=== PATIENT | male | born 1975 | race Caucasian/White ===

== ENCOUNTER 2019-02-12 10:36 | Inpatient (IN) | payer MEDICARE ==
[~2019-02-12] VITALS: Ht 170.2 cm; Wt 84.4 kg
[~2019-02-12 10:36] MED LIST: DIVA500T52 PO; DIVA500T69 PO; DULO30CA2 PO; QUET200T PO
[2019-02-12 13:28] VITALS: BP 129/83
[2019-02-12 13:45] VITALS: BP 120/82
[2019-02-12] MEDS ORDERED: ZOLPIDEM TARTRATE 10 MG TABLET PO PRN (13:45)
[2019-02-12] MEDS ORDERED: QUEtiapine FUMARATE 100 MG TABLET PO PRN (13:45)
[2019-02-12] MEDS ORDERED: DIVA-78 PO (13:53)
[2019-02-12] MEDS ORDERED: QUET200T PO (13:53)
[2019-02-12] MEDS ORDERED: DULO60CA44 PO (13:53)
[2019-02-12] MEDS: DULoxetine HCL 60 MG CAPSULE PO SCH (14:18)
[2019-02-12 16:21] VITALS: BP 124/69
[2019-02-12] MEDS: QUEtiapine FUMARATE 200 MG TABLET PO SCH (20:37)
[2019-02-12] MEDS: DIVALPROEX SODIUM 500 MG DR TABLET PO SCH (20:37)
[2019-02-13 08:11] VITALS: BP 113/63
[2019-02-13] MEDS: DULoxetine HCL 60 MG CAPSULE PO SCH (09:59)
[2019-02-13] MEDS: CLOTRIMAZOLE 1% 15 GM CREAM TP SCH ×2 (10:00→16:42)
[2019-02-13] MEDS: LORazepam 2 MG TABLET PO PRN (15:15)
[2019-02-13 17:12] VITALS: BP 116/78
[2019-02-13] MEDS: RANITIDINE HCL 150 MG TABLET PO SCH (18:52)
[2019-02-13] MEDS: DIVALPROEX SODIUM 500 MG DR TABLET PO SCH (20:11)
[2019-02-13] MEDS: QUEtiapine FUMARATE 200 MG TABLET PO SCH (20:11)
[2019-02-14 06:07] VITALS: BP 124/82
[2019-02-14 07:51] LABS: AMPHET/METH SCREEN,URINE NEGATIVE (NEGATIVE); BARBITURATE SCREEN, URINE NEGATIVE (NEGATIVE); BENZODIAZEPINES SCREEN,URINE NEGATIVE (NEGATIVE); CANNABINOID SCREEN,URINE NEGATIVE (NEGATIVE); COCAINE SCREEN,URINE NEGATIVE (NEGATIVE); METHADONE SCREEN, URINE NEGATIVE (NEGATIVE); OPIATE SCREEN,URINE NEGATIVE (NEGATIVE)
[2019-02-14 07:52] LABS: PHENCYCLIDINE SCREEN,URINE NEGATIVE (NEGATIVE)
[2019-02-14 08:06] VITALS: BP 118/73
[2019-02-14 08:12] LABS: APPEARANCE,URINE CLEAR (CLEAR); BILIRUBIN,URINE NEGATIVE (NEGATIVE); GLUCOSE, URINE (UA) NEGATIVE (NEGATIVE); KETONES,URINE NEGATIVE (NEGATIVE); LEUKOCYTE ESTERASE ,URINE NEGATIVE (NEGATIVE); NITRATE,URINE NEGATIVE (NEGATIVE); OCCULT BLOOD,URINE NEGATIVE (NEGATIVE); PH,URINE 7.5 (5.0-8.0); PROTEIN,URINE NEGATIVE (NEGATIVE); UROBILINOGEN,URINE 0.2 mg/dL (<=1.0)
[2019-02-14] MEDS: DULoxetine HCL 60 MG CAPSULE PO SCH (08:14)
[2019-02-14] MEDS: RANITIDINE HCL 150 MG TABLET PO SCH (08:14)
[2019-02-14] MEDS: CLOTRIMAZOLE 1% 15 GM CREAM TP SCH ×2 (08:15→16:35)
[2019-02-14] MEDS ORDERED: RANITIDINE HCL 150 MG TABLET PO SCH (09:00)
[2019-02-14 16:14] VITALS: BP 122/76
[2019-02-14] MEDS: DIVALPROEX SODIUM 500 MG DR TABLET PO SCH (20:33)
[2019-02-14] MEDS: QUEtiapine FUMARATE 200 MG TABLET PO SCH (20:33)
[2019-02-15 05:51] VITALS: BP 126/72
[2019-02-15 08:05] VITALS: BP 103/66
[2019-02-15] MEDS: RANITIDINE HCL 150 MG TABLET PO SCH (08:49)
[2019-02-15] MEDS: CLOTRIMAZOLE 1% 15 GM CREAM TP SCH ×2 (08:49→16:31)
[2019-02-15] MEDS: DULoxetine HCL 60 MG CAPSULE PO SCH (08:49)
[2019-02-15 16:17] VITALS: BP 112/64
[2019-02-15] MEDS: LORazepam 2 MG TABLET PO PRN (17:20)
[2019-02-15] MEDS: DIVALPROEX SODIUM 500 MG DR TABLET PO SCH (20:30)
[2019-02-15] MEDS: QUEtiapine FUMARATE 200 MG TABLET PO SCH (20:30)
[2019-02-16 05:54] VITALS: BP 116/68
[2019-02-16] MEDS: DULoxetine HCL 60 MG CAPSULE PO SCH (08:30)
[2019-02-16] MEDS: RANITIDINE HCL 150 MG TABLET PO SCH (08:30)
[2019-02-16] MEDS: CLOTRIMAZOLE 1% 15 GM CREAM TP SCH ×2 (08:30→17:05)
[2019-02-16 08:47] VITALS: BP 106/63
[2019-02-16 16:07] VITALS: BP 121/73
[2019-02-16] MEDS: DIVALPROEX SODIUM 500 MG DR TABLET PO SCH (20:03)
[2019-02-16] MEDS: QUEtiapine FUMARATE 200 MG TABLET PO SCH (20:03)
[2019-02-17 06:25] VITALS: BP 118/64
[2019-02-17 08:14] VITALS: BP 114/72
[2019-02-17] MEDS: RANITIDINE HCL 150 MG TABLET PO SCH (08:27)
[2019-02-17] MEDS: DULoxetine HCL 60 MG CAPSULE PO SCH (08:27)
[2019-02-17] MEDS: CLOTRIMAZOLE 1% 15 GM CREAM TP SCH ×2 (08:37→16:14)
[2019-02-17 16:04] VITALS: BP 124/83
[2019-02-17] MEDS: LORazepam 2 MG TABLET PO PRN (16:14)
[2019-02-17] MEDS: DIVALPROEX SODIUM 500 MG DR TABLET PO SCH (20:03)
[2019-02-17] MEDS: QUEtiapine FUMARATE 200 MG TABLET PO SCH (20:03)
[2019-02-18 05:50] VITALS: BP 115/62
[2019-02-18] MEDS: CLOTRIMAZOLE 1% 15 GM CREAM TP SCH ×2 (08:35→16:33)
[2019-02-18] MEDS: DULoxetine HCL 60 MG CAPSULE PO SCH (08:35)
[2019-02-18] MEDS: RANITIDINE HCL 150 MG TABLET PO SCH (08:36)
[2019-02-18 16:23] VITALS: BP 121/68
[2019-02-18] MEDS: QUEtiapine FUMARATE 200 MG TABLET PO SCH (20:46)
[2019-02-18] MEDS: DIVALPROEX SODIUM 500 MG DR TABLET PO SCH (20:47)
[2019-02-19 00:08] VITALS: BP 122/78
[2019-02-19 08:08] VITALS: BP 102/65
[2019-02-19] MEDS: DULoxetine HCL 60 MG CAPSULE PO SCH (08:33)
[2019-02-19] MEDS: RANITIDINE HCL 150 MG TABLET PO SCH (08:33)
[2019-02-19] MEDS: CLOTRIMAZOLE 1% 15 GM CREAM TP SCH ×2 (08:40→16:30)
[2019-02-19 16:05] VITALS: BP 125/83
[2019-02-19] MEDS: LORazepam 2 MG TABLET PO PRN (19:15)
[2019-02-19] MEDS: QUEtiapine FUMARATE 200 MG TABLET PO SCH (20:35)
[2019-02-19] MEDS: DIVALPROEX SODIUM 500 MG DR TABLET PO SCH (20:35)
[2019-02-20 05:40] VITALS: BP 110/67
[2019-02-20] MEDS: RANITIDINE HCL 150 MG TABLET PO SCH (08:36)
[2019-02-20] MEDS: DULoxetine HCL 60 MG CAPSULE PO SCH (08:36)
[2019-02-20] MEDS: CLOTRIMAZOLE 1% 15 GM CREAM TP SCH ×2 (08:36→16:29)
[2019-02-20 08:45] VITALS: BP 108/70
[2019-02-20 16:14] VITALS: BP 117/79
[2019-02-20] MEDS: DIVALPROEX SODIUM 500 MG DR TABLET PO SCH (20:30)
[2019-02-20] MEDS: QUEtiapine FUMARATE 300 MG TABLET PO SCH (20:30)
[2019-02-21 08:10] VITALS: BP 115/65
[2019-02-21] MEDS: CLOTRIMAZOLE 1% 15 GM CREAM TP SCH ×2 (08:12→16:32)
[2019-02-21] MEDS: RANITIDINE HCL 150 MG TABLET PO SCH (08:12)
[2019-02-21] MEDS: DULoxetine HCL 60 MG CAPSULE PO SCH (08:12)
[2019-02-21] MEDS: LORazepam 2 MG TABLET PO PRN (16:04)
[2019-02-21 17:43] VITALS: BP 122/75
[2019-02-21] MEDS: QUEtiapine FUMARATE 300 MG TABLET PO SCH (20:34)
[2019-02-21] MEDS: DIVALPROEX SODIUM 500 MG DR TABLET PO SCH (20:34)
[2019-02-22 06:13] VITALS: BP 118/68
[2019-02-22 08:26] VITALS: BP 107/66
[2019-02-22] MEDS: DULoxetine HCL 60 MG CAPSULE PO SCH (08:26)
[2019-02-22] MEDS: RANITIDINE HCL 150 MG TABLET PO SCH (08:26)
[2019-02-22] MEDS: CLOTRIMAZOLE 1% 15 GM CREAM TP SCH ×2 (08:27→16:21)
[2019-02-22] MEDS: LORazepam 2 MG TABLET PO PRN (15:56)
[2019-02-22 16:09] VITALS: BP 103/73
[2019-02-22] MEDS: QUEtiapine FUMARATE 300 MG TABLET PO SCH (20:09)
[2019-02-22] MEDS: DIVALPROEX SODIUM 500 MG DR TABLET PO SCH (20:09)
[2019-02-23 05:12] VITALS: BP 106/69
[2019-02-23 08:21] VITALS: BP 118/60
[2019-02-23] MEDS: RANITIDINE HCL 150 MG TABLET PO SCH (08:34)
[2019-02-23] MEDS: DULoxetine HCL 60 MG CAPSULE PO SCH (08:34)
[2019-02-23] MEDS: CLOTRIMAZOLE 1% 15 GM CREAM TP SCH ×2 (08:35→16:29)
[2019-02-23 16:06] VITALS: BP 121/75
[2019-02-23] MEDS: DIVALPROEX SODIUM 500 MG DR TABLET PO SCH (20:30)
[2019-02-23] MEDS: QUEtiapine FUMARATE 300 MG TABLET PO SCH (20:31)
[2019-02-24 06:29] VITALS: BP_SYST 118; BP_DIAS 70; BP_DIAS 76
[2019-02-24] MEDS: DULoxetine HCL 60 MG CAPSULE PO SCH (09:21)
[2019-02-24] MEDS: RANITIDINE HCL 150 MG TABLET PO SCH (09:21)
[2019-02-24] MEDS: CLOTRIMAZOLE 1% 15 GM CREAM TP SCH ×2 (09:22→16:34)
[2019-02-24 14:19] VITALS: BP 117/72
[2019-02-24] MEDS: LORazepam 2 MG TABLET PO PRN (14:20)
[2019-02-24 16:11] VITALS: BP 116/74
[2019-02-24] MEDS: DIVALPROEX SODIUM 500 MG DR TABLET PO SCH (20:30)
[2019-02-24] MEDS: QUEtiapine FUMARATE 300 MG TABLET PO SCH (20:30)
[2019-02-25 03:15] VITALS: BP 120/78
[2019-02-25 08:21] VITALS: BP 109/64
[2019-02-25] MEDS: DULoxetine HCL 60 MG CAPSULE PO SCH (08:28)
[2019-02-25] MEDS: RANITIDINE HCL 150 MG TABLET PO SCH (08:28)
[2019-02-25] MEDS: CLOTRIMAZOLE 1% 15 GM CREAM TP SCH ×2 (08:40→16:31)
[2019-02-25 16:17] VITALS: BP 124/81
[2019-02-25] MEDS ORDERED: RANI150C4 PO (17:58)
[2019-02-25] MEDS: QUEtiapine FUMARATE 300 MG TABLET PO SCH (20:32)
[2019-02-25] MEDS: DIVALPROEX SODIUM 500 MG DR TABLET PO SCH (20:32)
[2019-02-26 05:52] VITALS: BP 130/83
== END 2019-02-26 07:15 | disposition home or self-care (01) | DRG 885 ==
LOC: B2X 13:26
DX: F25.1 Schizoaffective disorder, depressive type (principal); R45.851 Suicidal ideations; K21.9 Gastro-esophageal reflux disease without esophagitis; B35.3 Tinea pedis; F15.90 Other stimulant use, unspecified, uncomplicated; Z59.0 Homelessness; Z91.5 Personal history of self-harm; Z79.899 Other long term (current) drug therapy; Z83.3 Family history of diabetes mellitus; Z91.19 Patient's noncompliance with other medical treatment and regimen
CPT/HCPCS: 80307; 87081

== ENCOUNTER 2019-03-06 23:06 | Emergency (ER) | payer MEDICARE, OTHER ==
[~2019-03-06 23:06] MED LIST changes: +DIVA-78 PO; -DIVA500T52 PO; -DIVA500T69 PO; -DULO30CA2 PO; +DULO60CA44 PO; +RANI150C4 PO
== END 2019-03-06 23:15 | disposition left against medical advice (07) ==
LOC: EMS 23:06
DX: Z53.21 Procedure and treatment not carried out due to patient leaving prior to being seen by health care provider (principal)

== ENCOUNTER 2019-03-07 01:41 | Inpatient (IN) | payer MEDICARE, MEDICAID ==
[~2019-03-07] VITALS: Ht 177.8 cm; Wt 80.0 kg
[2019-03-07 03:11] LABS: ANION GAP 9 mmol/L (8-16); CALCIUM, TOTAL 9.6 mg/dL (8.8-10.5); CARBON DIOXIDE 27 mmol/L (22-29); CHLORIDE 103 mmol/L (98-107); CREATININE 0.83 mg/dL (0.60-1.30); GLOMERULAR FILTR. RATE CALC > 60 mL/min (>60); GLUCOSE,RANDOM 92 mg/dL (70-110); POTASSIUM 3.8 mmol/L (3.5-5.1); SODIUM SERUM 139 mmol/L (136-145); UREA NITROGEN, BLOOD 24 mg/dL (7-18)
[2019-03-07 03:15] LABS: BASOPHILS % (AUTO) 0.4 % (0.0-2.0); EOSINOPHILS % (AUTO) 2.7 % (1.0-6.0); HEMOGLOBIN 13.5 g/dL (13.5-17.5); LYMPHOCYTES # (AUTO) 2.1 K/uL (1.0-4.8); LYMPHOCYTES % (AUTO) 23.5 % (22.0-44.0); MEAN CORPUSCULAR HEMOGLOBIN 31.4 pg (26.0-34.0); MEAN CORPUSCULAR VOLUME 95 fL (80-100); MONOCYTES # (AUTO) 1.5 K/uL (0.1-1.0); MONOCYTES % (AUTO) 16.5 % (2.0-9.0); NEUTROPHILS % (AUTO) 56.9 % (40.0-70.0); PLATELET COUNT (AUTO) 241 K/uL (150-450)
[2019-03-07 03:17] LABS: ALANINE AMINOTRANSFERASE 26 U/L (12-78); ALBUMIN 4.8 g/dL (3.4-5.0); ALKALINE PHOSPHATASE 86 U/L (46-116); ASPARTATE AMINOTRANSFERASE 33 U/L (15-37); TOTAL PROTEIN, SERUM 8.1 g/dL (6.4-8.2)
[2019-03-07 03:22] LABS: AMPHET/METH SCREEN,URINE NEGATIVE (NEGATIVE); BARBITURATE SCREEN, URINE NEGATIVE (NEGATIVE); BENZODIAZEPINES SCREEN,URINE NEGATIVE (NEGATIVE); CANNABINOID SCREEN,URINE NEGATIVE (NEGATIVE); COCAINE SCREEN,URINE NEGATIVE (NEGATIVE); METHADONE SCREEN, URINE NEGATIVE (NEGATIVE); OPIATE SCREEN,URINE NEGATIVE (NEGATIVE)
[2019-03-07 03:24] LABS: PHENCYCLIDINE SCREEN,URINE NEGATIVE (NEGATIVE)
[2019-03-07] MEDS ORDERED: QUEtiapine FUMARATE 100 MG TABLET PO ONE (03:30)
[2019-03-07 03:32] LABS: VALPROIC ACID 5 mcg/mL (50-100)
[2019-03-07] MEDS ORDERED: HALOPERIDOL 5 MG TABLET PO PRN (06:00)
[2019-03-07] MEDS ORDERED: ZOLPIDEM TARTRATE 10 MG TABLET PO PRN (06:00)
[2019-03-07 09:45] VITALS: BP 142/77
[2019-03-07] MEDS ORDERED: PNEUMOCOCCAL VACCINE POLYVALENT 0.5 ML VIAL [PPSV23] IM ONE (11:15)
[2019-03-07] MEDS: DULoxetine HCL 60 MG CAPSULE PO SCH (15:08)
[2019-03-07 17:44] VITALS: BP 105/65
[2019-03-07] MEDS: DIVALPROEX SODIUM 500 MG DR TABLET PO SCH (20:38)
[2019-03-07] MEDS: QUEtiapine FUMARATE 200 MG TABLET PO SCH (20:39)
[2019-03-08] MEDS: DULoxetine HCL 60 MG CAPSULE PO SCH (08:51)
[2019-03-08] MEDS ORDERED: HALOPERIDOL LACTATE 5 MG/ML VIAL IM ONE (17:45)
[2019-03-08] MEDS ORDERED: LORazepam 2 MG/ML VIAL IM ONE (17:45)
[2019-03-08] MEDS ORDERED: DiphenhydrAMINE HCL 50 MG/ML VIAL IM ONE (17:45)
[2019-03-08] MEDS: DIVALPROEX SODIUM 500 MG DR TABLET PO SCH (21:00)
[2019-03-08] MEDS: QUEtiapine FUMARATE 200 MG TABLET PO SCH (21:00)
[2019-03-09] MEDS: DULoxetine HCL 60 MG CAPSULE PO SCH (09:00)
[2019-03-09] MEDS: QUEtiapine FUMARATE 200 MG TABLET PO SCH (20:17)
[2019-03-09] MEDS: DIVALPROEX SODIUM 500 MG DR TABLET PO SCH (20:17)
[2019-03-10] MEDS: DULoxetine HCL 60 MG CAPSULE PO SCH (10:00)
[2019-03-10] MEDS: LORazepam 2 MG TABLET PO PRN (17:20)
[2019-03-10] MEDS: DIVALPROEX SODIUM 500 MG DR TABLET PO SCH (20:37)
[2019-03-10] MEDS: QUEtiapine FUMARATE 200 MG TABLET PO SCH (20:37)
[2019-03-11 08:56] VITALS: BP 124/72
[2019-03-11] MEDS: DULoxetine HCL 60 MG CAPSULE PO SCH (09:00)
[2019-03-11] MEDS: LORazepam 2 MG TABLET PO PRN (16:04)
[2019-03-11 17:03] VITALS: BP 110/71
[2019-03-11] MEDS: QUEtiapine FUMARATE 200 MG TABLET PO SCH (20:40)
[2019-03-11] MEDS: DIVALPROEX SODIUM 500 MG DR TABLET PO SCH (20:41)
[2019-03-12] MEDS: RANITIDINE HCL 150 MG TABLET PO SCH (09:00)
[2019-03-12] MEDS: DULoxetine HCL 60 MG CAPSULE PO SCH (09:49)
[2019-03-12] MEDS: DIVALPROEX SODIUM 500 MG DR TABLET PO SCH (20:21)
[2019-03-12] MEDS: QUEtiapine FUMARATE 200 MG TABLET PO SCH (20:25)
[2019-03-13] MEDS: DULoxetine HCL 60 MG CAPSULE PO SCH (07:54)
[2019-03-13] MEDS: RANITIDINE HCL 150 MG TABLET PO SCH (07:56)
[2019-03-13 08:00] VITALS: BP 128/90
[2019-03-13] MEDS ORDERED: BISACODYL 5 MG EC TABLET PO PRN (12:30)
[2019-03-13] MEDS: LORazepam 2 MG TABLET PO PRN (15:57)
[2019-03-13 17:02] VITALS: BP 116/66
[2019-03-13] MEDS: DIVALPROEX SODIUM 500 MG DR TABLET PO SCH (20:15)
[2019-03-13] MEDS: QUEtiapine FUMARATE 200 MG TABLET PO SCH (20:15)
[2019-03-14] MEDS: DULoxetine HCL 60 MG CAPSULE PO SCH (08:07)
[2019-03-14] MEDS: RANITIDINE HCL 150 MG TABLET PO SCH (08:07)
[2019-03-14 08:10] VITALS: BP 134/85
[2019-03-14] MEDS ORDERED: QUET200T29 PO (14:23)
[2019-03-14] MEDS ORDERED: DULO60CA44 PO (14:23)
[2019-03-14] MEDS ORDERED: DIVA-78 PO (14:23)
== END 2019-03-14 16:20 | disposition home or self-care (01) | DRG 885 ==
LOC: EMS 01:45 → 3EX 06:00
DX: F25.1 Schizoaffective disorder, depressive type (principal); F15.129 Other stimulant abuse with intoxication, unspecified; R45.851 Suicidal ideations; F41.9 Anxiety disorder, unspecified; R56.9 Unspecified convulsions; K21.9 Gastro-esophageal reflux disease without esophagitis; K59.00 Constipation, unspecified; R79.89 Other specified abnormal findings of blood chemistry; Z59.0 Homelessness; Z91.14 Patient's other noncompliance with medication regimen; Z91.5 Personal history of self-harm; Z79.899 Other long term (current) drug therapy
CPT/HCPCS: 87081; G0378; G0480; J1200; J1630; J2060

== ENCOUNTER 2020-03-21 08:53 | Inpatient (IN) | payer MEDICARE, MEDICAID ==
[~2020-03-21] VITALS: Ht 167.6 cm; Wt 73.5 kg
[~2020-03-21 08:53] MED LIST changes: +DIVA-112 PO; -DIVA-78 PO; +DULO-8 PO; -DULO60CA44 PO; -QUET200T PO; +QUET200T29 PO
[2020-03-21] MEDS ORDERED: LORazepam 2 MG TABLET PO PRN (10:45)
[2020-03-21] MEDS ORDERED: ZOLPIDEM TARTRATE 10 MG TABLET PO PRN (10:45)
[2020-03-21] MEDS ORDERED: HALOPERIDOL 5 MG TABLET PO PRN (10:45)
[2020-03-21 11:47] VITALS: BP 117/65
[2020-03-21 17:36] VITALS: BP 107/64
[2020-03-21] MEDS: QUEtiapine FUMARATE 200 MG TABLET PO SCH (20:38)
[2020-03-21] MEDS: DIVALPROEX SODIUM 500 MG DR TABLET PO SCH (20:38)
[2020-03-22] MEDS ORDERED: PETROLATUM,WHITE 28 GM JELLY TP PRN (07:00)
[2020-03-22] MEDS ORDERED: IBUPROFEN 600 MG TABLET PO PRN (07:00)
[2020-03-22] MEDS ORDERED: MAGNESIUM HYDROXIDE SUSPENSION 30 ML UDCUP PO PRN (07:00)
[2020-03-22] MEDS ORDERED: BENZOCAINE/MENTHOL LOZENGE PO PRN (07:00)
[2020-03-22] MEDS ORDERED: LOPERAMIDE HCL 2 MG CAPSULE PO PRN (07:00)
[2020-03-22] MEDS ORDERED: DOCUSATE SODIUM 100 MG CAPSULE PO PRN (07:00)
[2020-03-22] MEDS ORDERED: ONDANSETRON HCL 4 MG TABLET PO PRN (07:00)
[2020-03-22] MEDS ORDERED: OMEPRAZOLE 20 MG CAPSULE PO PRN (07:00)
[2020-03-22] MEDS ORDERED: ACETAMINOPHEN 325 MG TABLET PO PRN (07:00)
[2020-03-22] MEDS ORDERED: ALBUTEROL SULFATE HFA 90 MCG/PUFF 8 GM INHALER IH PRN (07:00)
[2020-03-22] MEDS ORDERED: BACITRACIN 28 GM OINTMENT TP PRN (07:00)
[2020-03-22] MEDS ORDERED: CloNIDine HCL 0.1 MG TABLET PO PRN (07:00)
[2020-03-22 08:20] VITALS: BP 111/61
[2020-03-22] MEDS: DULoxetine HCL 60 MG CAPSULE PO SCH (08:28)
[2020-03-22 16:00] VITALS: BP 110/69
[2020-03-22] MEDS: DIVALPROEX SODIUM 500 MG DR TABLET PO SCH (20:35)
[2020-03-22] MEDS: QUEtiapine FUMARATE 200 MG TABLET PO SCH (20:35)
[2020-03-23 09:19] VITALS: BP 110/72
[2020-03-23] MEDS: DULoxetine HCL 60 MG CAPSULE PO SCH (09:30)
[2020-03-23 16:18] VITALS: BP 115/67
[2020-03-23] MEDS: QUEtiapine FUMARATE 200 MG TABLET PO SCH (20:33)
[2020-03-23] MEDS: DIVALPROEX SODIUM 500 MG DR TABLET PO SCH (20:33)
[2020-03-24 04:41] VITALS: BP 118/68
[2020-03-24] MEDS: DULoxetine HCL 60 MG CAPSULE PO SCH (08:35)
[2020-03-24 10:03] VITALS: BP 100/60
[2020-03-24 16:11] VITALS: BP 107/64
[2020-03-24] MEDS: QUEtiapine FUMARATE 200 MG TABLET PO SCH (20:37)
[2020-03-24] MEDS: DIVALPROEX SODIUM 500 MG DR TABLET PO SCH (20:37)
[2020-03-25 00:55] VITALS: BP 119/64
[2020-03-25 07:49] LABS: BASOPHILS % (AUTO) 0.8 % (0.0-2.0); EOSINOPHILS % (AUTO) 4.8 % (1.0-6.0); HEMATOCRIT 41.5 % (41-53); HEMOGLOBIN 13.6 g/dL (13.5-17.5); LYMPHOCYTES # (AUTO) 1.5 K/uL (1.0-4.8); LYMPHOCYTES % (AUTO) 36.4 % (22.0-44.0); MEAN CORPUSCULAR HEMOGLOBIN 30.8 pg (26.0-34.0); MEAN CORPUSCULAR HGB CONC 32.8 G/dL (31.0-37.0); MEAN CORPUSCULAR VOLUME 94 fL (80-100); MONOCYTES # (AUTO) 0.4 K/uL (0.1-1.0); MONOCYTES % (AUTO) 8.6 % (2.0-9.0); NEUTROPHILS # (AUTO) 2.1 K/uL (1.8-7.7); NEUTROPHILS % (AUTO) 49.4 % (40.0-70.0); PLATELET COUNT (AUTO) 242 K/uL (150-450); RED BLOOD CELL COUNT(AUTO) 4.41 MIL/uL (4.50-5.90); RED CELL DISTRIBUTION WIDTH 13.8 % (11.5-14.5)
[2020-03-25 08:11] LABS: ALANINE AMINOTRANSFERASE 18 U/L (12-78); ALBUMIN 3.6 g/dL (3.4-5.0); ALKALINE PHOSPHATASE 62 U/L (46-116); ANION GAP 5 mmol/L (8-16); ASPARTATE AMINOTRANSFERASE 5 U/L (15-37); BILIRUBIN,TOTAL 0.3 mg/dL (0.1-1.0); CARBON DIOXIDE 31 mmol/L (22-29); CHLORIDE 104 mmol/L (98-107); CHOLESTEROL 101 mg/dL (131-200); CREATININE 0.89 mg/dL (0.60-1.30); GLOMERULAR FILTR. RATE CALC > 60 mL/min (>60); GLUCOSE,RANDOM 79 mg/dL (70-110); HDL CHOLESTEROL 34 mg/dL (40-60); LDL CHOL (CALC.) 55 mg/dL (0-130); POTASSIUM 3.9 mmol/L (3.5-5.1); SODIUM SERUM 140 mmol/L (136-145); THYROID STIMULATING HORMONE 0.38 uIU/mL (0.36-3.74); TOTAL PROTEIN, SERUM 6.8 g/dL (6.4-8.2); TRIGLYCERIDES 62 mg/dL (15-150); UREA NITROGEN, BLOOD 20 mg/dL (7-18); VALPROIC ACID 68 mcg/mL (50-100)
[2020-03-25 08:12] VITALS: BP 109/66
[2020-03-25] MEDS: DULoxetine HCL 60 MG CAPSULE PO SCH (08:23)
[2020-03-25 16:13] VITALS: BP 100/68
[2020-03-25] MEDS: DIVALPROEX SODIUM 500 MG DR TABLET PO SCH (20:08)
[2020-03-25] MEDS: QUEtiapine FUMARATE 200 MG TABLET PO SCH (20:10)
[2020-03-26 04:53] VITALS: BP 118/7
[2020-03-26] MEDS: DULoxetine HCL 60 MG CAPSULE PO SCH (08:06)
[2020-03-26] MEDS: NYSTATIN 30 GM CREAM TP SCH ×2 (08:08→16:31)
[2020-03-26 08:25] VITALS: BP 105/62
[2020-03-26 16:24] VITALS: BP 107/69
[2020-03-26] MEDS: QUEtiapine FUMARATE 200 MG TABLET PO SCH (20:46)
[2020-03-26] MEDS: DIVALPROEX SODIUM 500 MG DR TABLET PO SCH (20:46)
[2020-03-27] MEDS: DULoxetine HCL 60 MG CAPSULE PO SCH (08:31)
[2020-03-27 08:45] VITALS: BP 105/70
[2020-03-27] MEDS: NYSTATIN 30 GM CREAM TP SCH ×2 (09:07→16:28)
[2020-03-27 16:20] VITALS: BP 110/60
[2020-03-27] MEDS: QUEtiapine FUMARATE 200 MG TABLET PO SCH (20:37)
[2020-03-27] MEDS: DIVALPROEX SODIUM 500 MG DR TABLET PO SCH (20:38)
[2020-03-28 08:26] VITALS: BP 101/51
[2020-03-28] MEDS: DULoxetine HCL 60 MG CAPSULE PO SCH (08:33)
[2020-03-28] MEDS: NYSTATIN 30 GM CREAM TP SCH ×2 (08:33→17:00)
[2020-03-28 16:27] VITALS: BP 107/61
[2020-03-28] MEDS: QUEtiapine FUMARATE 200 MG TABLET PO SCH (20:23)
[2020-03-28] MEDS: DIVALPROEX SODIUM 500 MG DR TABLET PO SCH (20:23)
[2020-03-29 04:33] VITALS: BP 105/64
[2020-03-29 08:20] VITALS: BP 102/61
[2020-03-29] MEDS: DULoxetine HCL 60 MG CAPSULE PO SCH (09:06)
[2020-03-29] MEDS: NYSTATIN 30 GM CREAM TP SCH ×2 (09:06→16:31)
[2020-03-29 16:21] VITALS: BP 114/67
[2020-03-29] MEDS: QUEtiapine FUMARATE 200 MG TABLET PO SCH (20:07)
[2020-03-29] MEDS: DIVALPROEX SODIUM 500 MG DR TABLET PO SCH (20:07)
[2020-03-30 01:57] VITALS: BP 126/84
[2020-03-30 08:27] VITALS: BP 111/69
[2020-03-30] MEDS: NYSTATIN 30 GM CREAM TP SCH ×2 (08:39→16:35)
[2020-03-30] MEDS: DULoxetine HCL 60 MG CAPSULE PO SCH (08:39)
[2020-03-30 16:23] VITALS: BP 109/62
[2020-03-30] MEDS: MAG HYDROX/AL HYDROX/SIMETH ES 30 ML SUSPENSION UDCUP PO PRN (20:10)
[2020-03-30] MEDS: DIVALPROEX SODIUM 500 MG DR TABLET PO SCH (20:43)
[2020-03-30] MEDS: QUEtiapine FUMARATE 200 MG TABLET PO SCH (20:43)
[2020-03-31 01:20] VITALS: BP 110/69
[2020-03-31 08:14] VITALS: BP 110/65
[2020-03-31] MEDS: DULoxetine HCL 60 MG CAPSULE PO SCH (08:38)
[2020-03-31] MEDS: NYSTATIN 30 GM CREAM TP SCH ×2 (08:39→16:33)
[2020-03-31 16:46] VITALS: BP 107/62
[2020-03-31] MEDS: MAG HYDROX/AL HYDROX/SIMETH ES 30 ML SUSPENSION UDCUP PO PRN (19:35)
[2020-03-31] MEDS: QUEtiapine FUMARATE 200 MG TABLET PO SCH (20:33)
[2020-03-31] MEDS: DIVALPROEX SODIUM 500 MG DR TABLET PO SCH (20:34)
[2020-04-01 00:14] VITALS: BP 98/64
[2020-04-01] MEDS: DULoxetine HCL 60 MG CAPSULE PO SCH (08:15)
[2020-04-01] MEDS: NYSTATIN 30 GM CREAM TP SCH ×2 (08:40→16:52)
[2020-04-01 10:49] VITALS: BP 104/68
[2020-04-01 16:18] VITALS: BP 111/65
[2020-04-01] MEDS: DIVALPROEX SODIUM 500 MG DR TABLET PO SCH (20:41)
[2020-04-01] MEDS: QUEtiapine FUMARATE 200 MG TABLET PO SCH (20:41)
[2020-04-02 03:54] VITALS: BP 118/79
[2020-04-02 08:13] VITALS: BP 110/66
[2020-04-02] MEDS: DULoxetine HCL 60 MG CAPSULE PO SCH (08:25)
[2020-04-02] MEDS: NYSTATIN 30 GM CREAM TP SCH ×2 (09:30→16:54)
[2020-04-02 16:19] VITALS: BP 121/75
[2020-04-02] MEDS: DIVALPROEX SODIUM 500 MG DR TABLET PO SCH (20:38)
[2020-04-02] MEDS: QUEtiapine FUMARATE 200 MG TABLET PO SCH (20:38)
[2020-04-03 02:48] VITALS: BP 104/61
[2020-04-03] MEDS: DULoxetine HCL 60 MG CAPSULE PO SCH (08:37)
[2020-04-03] MEDS: NYSTATIN 30 GM CREAM TP SCH ×2 (08:38→16:55)
[2020-04-03 09:20] VITALS: BP 104/61
[2020-04-03 16:21] VITALS: BP 132/81
[2020-04-03] MEDS: DIVALPROEX SODIUM 500 MG DR TABLET PO SCH (20:27)
[2020-04-03] MEDS: QUEtiapine FUMARATE 200 MG TABLET PO SCH (20:27)
[2020-04-04 00:48] VITALS: BP 104/62
[2020-04-04] MEDS ORDERED: NYST30CR9 TP (07:25)
[2020-04-04] MEDS: DULoxetine HCL 60 MG CAPSULE PO SCH (08:11)
[2020-04-04] MEDS: NYSTATIN 30 GM CREAM TP SCH (08:17)
[2020-04-04 09:03] VITALS: BP 100/60
== END 2020-04-04 13:10 | disposition home or self-care (01) | DRG 885 ==
LOC: B2X 10:30
PROVIDERS: ADMIT Psychiatry & Neurology Psychiatry; ATTEND Psychiatry & Neurology Psychiatry
DX: F25.1 Schizoaffective disorder, depressive type (principal); F19.10 Other psychoactive substance abuse, uncomplicated; F41.9 Anxiety disorder, unspecified; F32.9 Major depressive disorder, single episode, unspecified; F17.200 Nicotine dependence, unspecified, uncomplicated; Z59.0 Homelessness; F25.9 Schizoaffective disorder, unspecified; G47.00 Insomnia, unspecified; K59.00 Constipation, unspecified; G40.909 Epilepsy, unspecified, not intractable, without status epilepticus; Z20.828 Contact with and (suspected) exposure to other viral communicable diseases
CPT/HCPCS: 84436; 84439; 84443; 87426

== ENCOUNTER 2020-05-18 17:09 | Emergency (ER) | payer MEDICARE, MEDICAID ==
[~2020-05-18] VITALS: Ht 170.2 cm; Wt 70.5 kg
[~2020-05-18 17:09] MED LIST changes: +NYST30CR9 TP; -RANI150C4 PO
[2020-05-18 17:13] VITALS: BP 123/79
== END 2020-05-18 18:47 | disposition left against medical advice (07) ==
LOC: EMS 17:09
DX: R45.851 Suicidal ideations (principal); Z53.21 Procedure and treatment not carried out due to patient leaving prior to being seen by health care provider

== ENCOUNTER 2020-05-18 19:49 | Emergency (ER) | payer MEDICARE, MEDICAID ==
[~2020-05-18] VITALS: Ht 170.2 cm; Wt 72.7 kg
[2020-05-18 21:22] LABS: BASOPHILS % (AUTO) 0.7 % (0.0-2.0); EOSINOPHILS % (AUTO) 5.9 % (1.0-6.0); HEMATOCRIT 39.6 % (41-53); HEMOGLOBIN 13.3 g/dL (13.5-17.5); LYMPHOCYTES # (AUTO) 1.7 K/uL (1.0-4.8); LYMPHOCYTES % (AUTO) 27.2 % (22.0-44.0); MEAN CORPUSCULAR HEMOGLOBIN 31.6 pg (26.0-34.0); MEAN CORPUSCULAR HGB CONC 33.5 G/dL (31.0-37.0); MEAN CORPUSCULAR VOLUME 94 fL (80-100); MONOCYTES # (AUTO) 0.8 K/uL (0.1-1.0); MONOCYTES % (AUTO) 13.3 % (2.0-9.0); NEUTROPHILS # (AUTO) 3.2 K/uL (1.8-7.7); NEUTROPHILS % (AUTO) 52.9 % (40.0-70.0); PLATELET COUNT (AUTO) 292 K/uL (150-450); RED CELL DISTRIBUTION WIDTH 14.1 % (11.5-14.5)
[2020-05-18 21:26] LABS: ANION GAP 4 mmol/L (8-16); CALCIUM, TOTAL 9.9 mg/dL (8.8-10.5); CARBON DIOXIDE 33 mmol/L (22-29); CHLORIDE 103 mmol/L (98-107); CREATININE 0.86 mg/dL (0.60-1.30); GLOMERULAR FILTR. RATE CALC > 60 mL/min (>60); GLUCOSE,RANDOM 77 mg/dL (70-110); POTASSIUM 4.2 mmol/L (3.5-5.1); SODIUM SERUM 140 mmol/L (136-145); UREA NITROGEN, BLOOD 16 mg/dL (7-18)
[2020-05-18 21:32] LABS: ALANINE AMINOTRANSFERASE 31 U/L (12-78); ALKALINE PHOSPHATASE 103 U/L (46-116); ASPARTATE AMINOTRANSFERASE 18 U/L (15-37); BILIRUBIN,TOTAL 0.2 mg/dL (0.1-1.0); TOTAL PROTEIN, SERUM 7.4 g/dL (6.4-8.2)
[2020-05-18 21:34] LABS: VALPROIC ACID < 3 mcg/mL (50-100)
[2020-05-18 22:05] LABS: AMPHET/METH SCREEN,URINE POSITIVE (NEGATIVE); BARBITURATE SCREEN, URINE NEGATIVE (NEGATIVE); BENZODIAZEPINES SCREEN,URINE NEGATIVE (NEGATIVE); CANNABINOID SCREEN,URINE NEGATIVE (NEGATIVE); COCAINE SCREEN,URINE NEGATIVE (NEGATIVE); METHADONE SCREEN, URINE NEGATIVE (NEGATIVE); OPIATE SCREEN,URINE NEGATIVE (NEGATIVE)
[2020-05-18 22:06] LABS: PHENCYCLIDINE SCREEN,URINE NEGATIVE (NEGATIVE)
[2020-05-19 00:20] VITALS: BP 133/81
[2020-05-19 00:20] LABS: COVID AG,FIA SOURCE NASOPHARYNGEAL
== END 2020-05-19 01:21 | disposition left against medical advice (07) ==
LOC: EMS 19:52
DX: F25.9 Schizoaffective disorder, unspecified (principal)
CPT/HCPCS: 36415; 80053; 80164; 80307; 85025; 87426; 99284; G0480

== ENCOUNTER 2020-06-12 01:17 | Emergency (ER) | payer MEDICARE, MEDICAID ==
[~2020-06-12] VITALS: Ht 170.2 cm; Wt 72.7 kg
[2020-06-12] MEDS ORDERED: DIVA-80 PO (01:34)
[2020-06-12] MEDS ORDERED: QUET200T PO (01:34)
[2020-06-12 02:17] LABS: BASOPHILS % (AUTO) 0.8 % (0.0-2.0); HEMATOCRIT 40.3 % (41-53); HEMOGLOBIN 13.6 g/dL (13.5-17.5); LYMPHOCYTES # (AUTO) 1.6 K/uL (1.0-4.8); LYMPHOCYTES % (AUTO) 26.9 % (22.0-44.0); MEAN CORPUSCULAR HEMOGLOBIN 31.9 pg (26.0-34.0); MEAN CORPUSCULAR HGB CONC 33.7 G/dL (31.0-37.0); MEAN CORPUSCULAR VOLUME 95 fL (80-100); MONOCYTES # (AUTO) 0.7 K/uL (0.1-1.0); MONOCYTES % (AUTO) 11.3 % (2.0-9.0); NEUTROPHILS # (AUTO) 3.4 K/uL (1.8-7.7); PLATELET COUNT (AUTO) 289 K/uL (150-450); RED BLOOD CELL COUNT(AUTO) 4.26 MIL/uL (4.50-5.90); RED CELL DISTRIBUTION WIDTH 14.1 % (11.5-14.5)
[2020-06-12 02:24] LABS: ANION GAP 7 mmol/L (8-16); CALCIUM, TOTAL 9.2 mg/dL (8.8-10.5); CARBON DIOXIDE 28 mmol/L (22-29); CHLORIDE 103 mmol/L (98-107); GLOMERULAR FILTR. RATE CALC > 60 mL/min (>60); GLUCOSE,RANDOM 106 mg/dL (70-110); POTASSIUM 3.9 mmol/L (3.5-5.1); SODIUM SERUM 138 mmol/L (136-145); UREA NITROGEN, BLOOD 16 mg/dL (7-18)
[2020-06-12 02:30] LABS: ALANINE AMINOTRANSFERASE 28 U/L (12-78); ALBUMIN 4.2 g/dL (3.4-5.0); ALKALINE PHOSPHATASE 85 U/L (46-116); ASPARTATE AMINOTRANSFERASE 28 U/L (15-37); BILIRUBIN,TOTAL 0.8 mg/dL (0.1-1.0); TOTAL PROTEIN, SERUM 7.8 g/dL (6.4-8.2)
[2020-06-12] MEDS ORDERED: QUEtiapine FUMARATE 200 MG TABLET PO ONE (02:30)
[2020-06-12 04:15] VITALS: BP 109/70
== END 2020-06-12 04:15 | disposition home or self-care (01) ==
LOC: EMS 01:19
DX: F20.9 Schizophrenia, unspecified (principal); F41.9 Anxiety disorder, unspecified; F31.9 Bipolar disorder, unspecified; F17.210 Nicotine dependence, cigarettes, uncomplicated; F12.90 Cannabis use, unspecified, uncomplicated; Z76.0 Encounter for issue of repeat prescription; Z59.0 Homelessness
CPT/HCPCS: 36415; 80053; 85025; 99283; G0480

== ENCOUNTER 2020-06-13 08:31 | Inpatient (IN) | payer MEDICARE, MEDICAID ==
[~2020-06-13] VITALS: Ht 170.2 cm; Wt 80.6 kg
[~2020-06-13 08:31] MED LIST changes: -DIVA-112 PO; +DIVA-80 PO; -NYST30CR9 TP; +QUET200T PO; -QUET200T29 PO
[2020-06-13] MEDS ORDERED: ZOLPIDEM TARTRATE 10 MG TABLET PO PRN (16:15)
[2020-06-13] MEDS ORDERED: HALOPERIDOL 5 MG TABLET PO PRN (16:15)
[2020-06-13 16:35] VITALS: BP 125/80
[2020-06-13 17:45] VITALS: BP 125/78
[2020-06-13] MEDS: LORazepam 2 MG TABLET PO PRN (19:35)
[2020-06-14 02:07] VITALS: BP 135/85
[2020-06-14 16:05] VITALS: BP 130/78
[2020-06-14] MEDS: LORazepam 2 MG TABLET PO PRN (17:32)
[2020-06-14] MEDS: DIVALPROEX SODIUM 500 MG ER TABLET PO SCH (20:33)
[2020-06-14] MEDS: QUEtiapine FUMARATE 300 MG TABLET PO SCH (20:34)
[2020-06-15] MEDS ORDERED: BACITRACIN 28 GM OINTMENT TP PRN (08:15)
[2020-06-15] MEDS ORDERED: MAGNESIUM HYDROXIDE SUSPENSION 30 ML UDCUP PO PRN (08:15)
[2020-06-15] MEDS ORDERED: LOPERAMIDE HCL 2 MG CAPSULE PO PRN (08:15)
[2020-06-15] MEDS ORDERED: ACETAMINOPHEN 325 MG TABLET PO PRN (08:15)
[2020-06-15] MEDS ORDERED: CloNIDine HCL 0.1 MG TABLET PO PRN (08:15)
[2020-06-15] MEDS ORDERED: MAG HYDROX/AL HYDROX/SIMETH ES 30 ML SUSPENSION UDCUP PO PRN (08:15)
[2020-06-15] MEDS ORDERED: PETROLATUM,WHITE 28 GM JELLY TP PRN (08:15)
[2020-06-15] MEDS ORDERED: OMEPRAZOLE 20 MG CAPSULE PO PRN (08:15)
[2020-06-15] MEDS ORDERED: ONDANSETRON HCL 4 MG TABLET PO PRN (08:15)
[2020-06-15] MEDS ORDERED: DOCUSATE SODIUM 100 MG CAPSULE PO PRN (08:15)
[2020-06-15] MEDS ORDERED: ALBUTEROL SULFATE HFA 90 MCG/PUFF 8 GM INHALER IH PRN (08:15)
[2020-06-15] MEDS ORDERED: BENZOCAINE/MENTHOL LOZENGE PO PRN (08:15)
[2020-06-15] MEDS ORDERED: IBUPROFEN 600 MG TABLET PO PRN (08:15)
[2020-06-15 08:30] LABS: APPEARANCE,URINE CLEAR (CLEAR); BILIRUBIN,URINE NEGATIVE (NEGATIVE); GLUCOSE, URINE (UA) NEGATIVE (NEGATIVE); KETONES,URINE NEGATIVE (NEGATIVE); LEUKOCYTE ESTERASE ,URINE NEGATIVE (NEGATIVE); NITRATE,URINE NEGATIVE (NEGATIVE); OCCULT BLOOD,URINE NEGATIVE (NEGATIVE); PH,URINE 7.5 (5.0-8.0); PROTEIN,URINE NEGATIVE (NEGATIVE); UROBILINOGEN,URINE 0.2 mg/dL (<=1.0)
[2020-06-15 08:32] LABS: AMPHET/METH SCREEN,URINE NEGATIVE (NEGATIVE); BARBITURATE SCREEN, URINE NEGATIVE (NEGATIVE); BENZODIAZEPINES SCREEN,URINE NEGATIVE (NEGATIVE); CANNABINOID SCREEN,URINE NEGATIVE (NEGATIVE); COCAINE SCREEN,URINE NEGATIVE (NEGATIVE); METHADONE SCREEN, URINE NEGATIVE (NEGATIVE); OPIATE SCREEN,URINE NEGATIVE (NEGATIVE)
[2020-06-15 08:34] LABS: PHENCYCLIDINE SCREEN,URINE NEGATIVE (NEGATIVE)
[2020-06-15] MEDS: DULoxetine HCL 60 MG CAPSULE PO SCH (08:40)
[2020-06-15 19:00] LABS: COVID AG,FIA SOURCE NASAL SWAB
[2020-06-15] MEDS: DIVALPROEX SODIUM 500 MG ER TABLET PO SCH (20:35)
[2020-06-15] MEDS: QUEtiapine FUMARATE 300 MG TABLET PO SCH (20:35)
[2020-06-16 06:32] VITALS: BP 122/70
[2020-06-16] MEDS: DULoxetine HCL 60 MG CAPSULE PO SCH (11:06)
[2020-06-16 16:09] VITALS: BP 100/60
[2020-06-16] MEDS: QUEtiapine FUMARATE 200 MG TABLET PO SCH (16:33)
[2020-06-16] MEDS: DIVALPROEX SODIUM 500 MG ER TABLET PO SCH (20:30)
[2020-06-17 06:20] VITALS: BP 104/65
[2020-06-17 08:18] VITALS: BP 109/63
[2020-06-17] MEDS: QUEtiapine FUMARATE 200 MG TABLET PO SCH ×2 (09:25→17:06)
[2020-06-17] MEDS: DULoxetine HCL 60 MG CAPSULE PO SCH (09:25)
[2020-06-17 16:44] VITALS: BP 105/65
[2020-06-17] MEDS: DIVALPROEX SODIUM 500 MG ER TABLET PO SCH (20:27)
[2020-06-18 00:38] VITALS: BP 100/70
[2020-06-18 08:09] VITALS: BP 110/81
[2020-06-18] MEDS: DULoxetine HCL 60 MG CAPSULE PO SCH (08:56)
[2020-06-18] MEDS: QUEtiapine FUMARATE 200 MG TABLET PO SCH ×2 (08:56→17:00)
[2020-06-18] MEDS: DIVALPROEX SODIUM 500 MG ER TABLET PO SCH (20:31)
[2020-06-19] VITALS: BP 112/68
[2020-06-19 07:42] LABS: BASOPHILS % (AUTO) 0.7 % (0.0-2.0); EOSINOPHILS % (AUTO) 7.4 % (1.0-6.0); HEMATOCRIT 39.2 % (41-53); HEMOGLOBIN 13.1 g/dL (13.5-17.5); LYMPHOCYTES # (AUTO) 1.8 K/uL (1.0-4.8); LYMPHOCYTES % (AUTO) 37.2 % (22.0-44.0); MEAN CORPUSCULAR HEMOGLOBIN 31.5 pg (26.0-34.0); MEAN CORPUSCULAR HGB CONC 33.5 G/dL (31.0-37.0); MEAN CORPUSCULAR VOLUME 94 fL (80-100); MONOCYTES # (AUTO) 0.5 K/uL (0.1-1.0); MONOCYTES % (AUTO) 9.9 % (2.0-9.0); NEUTROPHILS # (AUTO) 2.2 K/uL (1.8-7.7); NEUTROPHILS % (AUTO) 44.8 % (40.0-70.0); PLATELET COUNT (AUTO) 239 K/uL (150-450); RED BLOOD CELL COUNT(AUTO) 4.16 MIL/uL (4.50-5.90); RED CELL DISTRIBUTION WIDTH 13.6 % (11.5-14.5)
[2020-06-19 08:08] LABS: ALANINE AMINOTRANSFERASE 10 U/L (12-78); ALBUMIN 3.4 g/dL (3.4-5.0); ALKALINE PHOSPHATASE 75 U/L (46-116); ANION GAP 4 mmol/L (8-16); ASPARTATE AMINOTRANSFERASE 8 U/L (15-37); BILIRUBIN,TOTAL 0.3 mg/dL (0.1-1.0); CARBON DIOXIDE 31 mmol/L (22-29); CHLORIDE 106 mmol/L (98-107); CHOL/HDL RATIO 4.4 (4.2-7.3); CHOLESTEROL 140 mg/dL (131-200); CREATININE 0.77 mg/dL (0.60-1.30); FREE T4 (FREE THYROXINE) 0.72 ng/dL (0.76-1.46); GLOMERULAR FILTR. RATE CALC > 60 mL/min (>60); GLUCOSE,RANDOM 80 mg/dL (70-110); HDL CHOLESTEROL 32 mg/dL (40-60); LDL CHOL (CALC.) 87 mg/dL (0-130); SODIUM SERUM 141 mmol/L (136-145); TOTAL PROTEIN, SERUM 6.6 g/dL (6.4-8.2); TRIGLYCERIDES 105 mg/dL (15-150); UREA NITROGEN, BLOOD 16 mg/dL (7-18); VALPROIC ACID 63 mcg/mL (50-100)
[2020-06-19 08:16] VITALS: BP 119/78
[2020-06-19] MEDS: DULoxetine HCL 60 MG CAPSULE PO SCH (08:20)
[2020-06-19] MEDS: QUEtiapine FUMARATE 200 MG TABLET PO SCH (08:20)
[2020-06-19 16:31] VITALS: BP 101/64
[2020-06-19] MEDS: QUEtiapine FUMARATE 300 MG TABLET PO SCH (16:41)
[2020-06-19] MEDS: DIVALPROEX SODIUM 500 MG ER TABLET PO SCH (20:31)
[2020-06-20 04:23] VITALS: BP 128/86
[2020-06-20 08:22] VITALS: BP 116/79
[2020-06-20] MEDS: QUEtiapine FUMARATE 300 MG TABLET PO SCH ×2 (10:21→17:00)
[2020-06-20] MEDS: DULoxetine HCL 60 MG CAPSULE PO SCH (10:21)
[2020-06-20 16:20] VITALS: BP 116/61
[2020-06-20] MEDS: DIVALPROEX SODIUM 500 MG ER TABLET PO SCH (20:24)
[2020-06-21 00:10] VITALS: BP 120/72
[2020-06-21 08:23] VITALS: BP 142/89
[2020-06-21] MEDS: DULoxetine HCL 60 MG CAPSULE PO SCH (09:59)
[2020-06-21] MEDS: QUEtiapine FUMARATE 300 MG TABLET PO SCH ×2 (09:59→16:38)
[2020-06-21 16:19] VITALS: BP 100/60
[2020-06-21] MEDS: DIVALPROEX SODIUM 500 MG ER TABLET PO SCH (20:26)
[2020-06-21] MEDS: TERBINAFINE HCL 1% 30 GM CREAM TP SCH (20:26)
[2020-06-22 01:18] VITALS: BP 133/69
[2020-06-22 08:14] VITALS: BP 110/72
[2020-06-22] MEDS: TERBINAFINE HCL 1% 30 GM CREAM TP SCH ×2 (09:48→16:37)
[2020-06-22] MEDS: DULoxetine HCL 60 MG CAPSULE PO SCH (09:48)
[2020-06-22] MEDS: QUEtiapine FUMARATE 300 MG TABLET PO SCH ×2 (09:48→16:36)
[2020-06-22] MEDS: DIVALPROEX SODIUM 250 MG ER TABLET PO SCH ×2 (10:03→16:36)
[2020-06-22 16:34] VITALS: BP 111/69
[2020-06-23 01:37] VITALS: BP 134/90
[2020-06-23 08:59] VITALS: BP 133/78
[2020-06-23] MEDS: DIVALPROEX SODIUM 250 MG ER TABLET PO SCH ×2 (09:18→16:32)
[2020-06-23] MEDS: DULoxetine HCL 60 MG CAPSULE PO SCH (09:18)
[2020-06-23] MEDS: QUEtiapine FUMARATE 300 MG TABLET PO SCH ×2 (09:18→16:32)
[2020-06-23] MEDS: TERBINAFINE HCL 1% 30 GM CREAM TP SCH ×2 (09:19→16:57)
[2020-06-23 16:27] VITALS: BP 103/65
[2020-06-24 04:36] VITALS: BP 124/86
[2020-06-24 08:43] VITALS: BP 134/82
[2020-06-24] MEDS ORDERED: LISINOPRIL 5 MG TABLET PO SCH (09:00)
[2020-06-24] MEDS: QUEtiapine FUMARATE 300 MG TABLET PO SCH (09:01)
[2020-06-24] MEDS: DULoxetine HCL 60 MG CAPSULE PO SCH (09:01)
[2020-06-24] MEDS: DIVALPROEX SODIUM 250 MG ER TABLET PO SCH (09:01)
[2020-06-24] MEDS: TERBINAFINE HCL 1% 30 GM CREAM TP SCH (09:02)
[2020-06-24] MEDS ORDERED: QUET300T2 PO (13:30)
[2020-06-24] MEDS ORDERED: DIVA-85 PO (13:30)
[2020-06-24] MEDS ORDERED: LISI-660 PO (13:31)
== END 2020-06-24 14:21 | disposition home or self-care (01) | DRG 885 ==
LOC: B2X 16:50
PROVIDERS: ADMIT Psychiatry & Neurology Psychiatry; ATTEND Psychiatry & Neurology Psychiatry
DX: F25.1 Schizoaffective disorder, depressive type (principal); F41.9 Anxiety disorder, unspecified; Z59.0 Homelessness; G40.909 Epilepsy, unspecified, not intractable, without status epilepticus; K59.00 Constipation, unspecified; G47.00 Insomnia, unspecified; Z20.828 Contact with and (suspected) exposure to other viral communicable diseases
CPT/HCPCS: 80307; 84439; 87426

== ENCOUNTER 2020-06-13 13:14 | Emergency (ER) | payer MEDICARE, MEDICAID ==
[~2020-06-13] VITALS: Ht 167.6 cm; Wt 72.7 kg
[2020-06-13 14:27] LABS: COVID AG,FIA SOURCE NASOPHARYNGEAL
[2020-06-13 15:15] VITALS: BP 123/75
== END 2020-06-13 15:45 | disposition home or self-care (01) ==
LOC: EMS 13:17
DX: F25.9 Schizoaffective disorder, unspecified (principal); F32.9 Major depressive disorder, single episode, unspecified; F17.210 Nicotine dependence, cigarettes, uncomplicated; F41.9 Anxiety disorder, unspecified; F12.90 Cannabis use, unspecified, uncomplicated; Z20.828 Contact with and (suspected) exposure to other viral communicable diseases; Z59.0 Homelessness
CPT/HCPCS: 87426

== ENCOUNTER 2022-05-14 19:22 | Emergency (ER) | payer MEDICARE, MEDICAID ==
[~2022-05-14] VITALS: Ht 175.3 cm; Wt 68.0 kg
[~2022-05-14 19:22] MED LIST changes: -DIVA-80 PO; +DIVA-85 PO; +DULO-113 PO; -DULO-8 PO; +LISI-892 PO; -QUET200T PO; +QUET300T2 PO
[2022-05-14 19:58] LABS: BASOPHILS % (AUTO) 0.3 % (0.0-2.0); EOSINOPHILS % (AUTO) 3.4 % (1.0-6.0); HEMATOCRIT 39.3 % (41-53); HEMOGLOBIN 12.9 g/dL (13.5-17.5); LYMPHOCYTES # (AUTO) 1.6 K/uL (1.0-4.8); LYMPHOCYTES % (AUTO) 28.7 % (22.0-44.0); MEAN CORPUSCULAR HEMOGLOBIN 30.6 pg (26.0-34.0); MEAN CORPUSCULAR HGB CONC 32.9 G/dL (31.0-37.0); MEAN CORPUSCULAR VOLUME 93 fL (80-100); MONOCYTES # (AUTO) 0.8 K/uL (0.1-1.0); MONOCYTES % (AUTO) 14.6 % (2.0-9.0); PLATELET COUNT (AUTO) 253 K/uL (150-450); RED BLOOD CELL COUNT(AUTO) 4.23 MIL/uL (4.50-5.90); RED CELL DISTRIBUTION WIDTH 14.2 % (11.5-14.5)
[2022-05-14 20:06] LABS: ANION GAP 2 mmol/L (8-16); CALCIUM, TOTAL 8.9 mg/dL (8.8-10.5); CARBON DIOXIDE 32 mmol/L (22-29); CHLORIDE 103 mmol/L (98-107); CREATININE 0.84 mg/dL (0.60-1.30); GLOMERULAR FILTR. RATE CALC > 60 mL/min (>60); GLUCOSE,RANDOM 98 mg/dL (70-110); POTASSIUM 3.8 mmol/L (3.5-5.1); SODIUM SERUM 137 mmol/L (136-145); UREA NITROGEN, BLOOD 13 mg/dL (7-18)
[2022-05-14 20:11] LABS: ALANINE AMINOTRANSFERASE 22 U/L (12-78); ALBUMIN 3.4 g/dL (3.4-5.0); ALKALINE PHOSPHATASE 87 U/L (46-116); ASPARTATE AMINOTRANSFERASE 14 U/L (15-37); BILIRUBIN,TOTAL 0.2 mg/dL (0.1-1.0); LIPASE 140 U/L (73-393); TOTAL PROTEIN, SERUM 7.1 g/dL (6.4-8.2)
[2022-05-14 21:20] LABS: VALPROIC ACID < 3 mcg/mL (50-100)
[2022-05-14 22:38] VITALS: BP 116/75
[2022-05-14 22:41] LABS: APPEARANCE,URINE CLEAR (CLEAR); BILIRUBIN,URINE NEGATIVE (NEGATIVE); GLUCOSE, URINE (UA) NEGATIVE (NEGATIVE); KETONES,URINE TRACE mg/dL (NEGATIVE); LEUKOCYTE ESTERASE ,URINE NEGATIVE (NEGATIVE); NITRATE,URINE NEGATIVE (NEGATIVE); OCCULT BLOOD,URINE NEGATIVE (NEGATIVE); PROTEIN,URINE 30-70 mg/dL (NEGATIVE); SPECIFIC GRAVITIY, URINE 1.034 (1.003-1.030)
[2022-05-14 22:48] LABS: AMPHET/METH SCREEN,URINE POSITIVE (NEGATIVE); BARBITURATE SCREEN, URINE NEGATIVE (NEGATIVE); BENZODIAZEPINES SCREEN,URINE NEGATIVE (NEGATIVE); CANNABINOID SCREEN,URINE NEGATIVE (NEGATIVE); COCAINE SCREEN,URINE NEGATIVE (NEGATIVE); METHADONE SCREEN, URINE NEGATIVE (NEGATIVE); OPIATE SCREEN,URINE NEGATIVE (NEGATIVE); PHENCYCLIDINE SCREEN,URINE NEGATIVE (NEGATIVE)
[2022-05-14] MEDS ORDERED: QUEtiapine FUMARATE 100 MG TABLET PO ONE (23:00)
[2022-05-14] MEDS ORDERED: PROMETHAZINE HCL 25 MG TABLET PO ONE (23:00)
== END 2022-05-14 23:31 | disposition home or self-care (01) ==
LOC: EMS 19:22
DX: F20.9 Schizophrenia, unspecified (principal); R11.2 Nausea with vomiting, unspecified; F15.10 Other stimulant abuse, uncomplicated; F32.9 Major depressive disorder, single episode, unspecified; F12.90 Cannabis use, unspecified, uncomplicated; Z87.39 Personal history of other diseases of the musculoskeletal system and connective tissue; Z59.00 Homelessness unspecified
CPT/HCPCS: 80053; 80164; 81003; 83690; 85025; 99284